=== PATIENT | female | born 1990 | race Two or more races ===

== ENCOUNTER → 2019-12-21 | Outpatient (CLI) | payer SELFPAY ==
--- NOTE | 2019-12-21 14:32 | RADIOLOGY REPORT (SQ) ---
EXAM DESCRIPTION: U/S OB 14+ TRNABD 1GES W/O DOP IMAGES COMPLETED DATE/TIME: 12/21/2019 1:46 pm REASON FOR STUDY: (Z34.82)ENCOUNTER FOR SUPRVSN OF NORMAL , SECOND TRIMESTER Z34.[address] FOR SUPRVSN OF NORMAL , SECOND TRI COMPARISON: None. TECHNIQUE: Static and Dynamic grayscale imaging performed of gravid uterus using transabdominal appr oach. Additional selected color Doppler and spectral images recorded. All stored on PACS. LIMITATIONS: None. FINDINGS: FETUSES SEEN:1 EGA: 16 weeks 2 days Calculated using BPD,FL,HC,AC documented on images. No discrepancy with clinica l dates. OCHOA: 06/04/2020 EFW: 149 +/-22 grams PERCENTILE: Not applicable. Fetus less than or equal to 20 weeks gestation. RAFAEL: Adequate PLACENTA: Posterior. Complete placenta previa. PRESENTATION: Variable. ANATOMY: No visualized anomalies. HEART RATE: 147 beats per minute. FOUR CHAMBER HEART: Visualized. MATERNAL ADNEXA: Maternal ovaries not visualized. CERVICAL LENGTH: 8.1 cm. Closed. OTHER: No other significant finding. IMPRESSION: LIVING INTRAUTERINE . ESTIMATED GESTATIONAL AGE 16 weeks 2 day NO VISUALIZED ANOMALIES. Complete placenta previa suggested. Placenta is posterior. Trimester of : Second trimester - 13 weeks 1 day to 27 weeks 6 days. TECHNICAL DOCUMENTATION: JOB ID: [id number] 2010 [employer]- All Rights Reserved Reading location - IP/workstation name: [email or web address]
== END ==
LOC: RAD 12:55
PROVIDERS: ATTEND Midwife
DX: O44.02 Complete placenta previa NOS or without hemorrhage, second trimester (principal); Z3A.16 16 weeks gestation of pregnancy
CPT/HCPCS: 76805

== ENCOUNTER → 2020-01-19 | Outpatient (CLI) | payer SELFPAY ==
--- NOTE | 2020-01-19 14:50 | RADIOLOGY REPORT (SQ) ---
EXAM DESCRIPTION: U/S OB 14+ TRNABD 1GES W/O DOP IMAGES COMPLETED DATE/TIME: 01/19/2020 2:03 pm REASON FOR STUDY: Z34.82 ENCOUNTER FOR SUPRVSN OF NORMAL , SECOND TRIMESTER Z34.82 ENCOUNT ER FOR SUPRVSN OF NORMAL , SECOND TRI COMPARISON: 12/21/2019 TECHNIQUE: Static and Dynamic grayscale imaging performed of gravid uterus using transabdominal appr oach. Additional selected color Doppler and spectral images recorded. All stored on PACS. LIMITATIONS: None. FINDINGS: FETUSES SEEN:1 EGA: 19 weeks 6 days Calculated using BPD,FL,HC,AC documented on images. No discrepancy with clinica l dates. OCHOA: 06/08/2020 EFW: 320 grams PERCENTILE: Not calculated LVP: 2.9 x 2.6 cm PLACENTA: Posterior. Covers cervical os. Grade 1 PRESENTATION: Variable ANATOMY: HEART RATE: 137 beats per minute. FOUR CHAMBER HEART: Visualized. THREE VESSEL CORD: Yes. CORD INSERTION: Visualized. KIDNEYS AND BLADDER: Visualized. Appear normal. STOMACH: Visualized. Appears normal. SPINE: Normal as visualized. BRAIN AND LATERAL VENTRICLES: Visualized. Appear normal. OTHER: No other significant finding. MATERNAL ADNEXA: Maternal ovaries not visualized. CERVICAL LENGTH: 3.7 cm. Closed. OTHER: No other significant finding. IMPRESSION: Living intrauterine gestation of 19 weeks 6 days. No anomalies are seen. There i s a posterior placenta that represents a placenta previa at this time. Trimester of : Second trimester - 13 weeks 1 day to 27 weeks 6 days. TECHNICAL DOCUMENTATION: JOB ID: [id number] 2010 [employer]- All Rights Reserved Reading location - IP/workstation name: [email or web address]
== END ==
LOC: RAD 13:20
PROVIDERS: ATTEND Nurse Practitioner Family
DX: Z34.82 Encounter for supervision of other normal pregnancy, second trimester (principal)
CPT/HCPCS: 76805

== ENCOUNTER → 2020-03-11 | Outpatient (CLI) | payer SELFPAY ==
--- NOTE | 2020-03-11 14:01 | RADIOLOGY REPORT (SQ) ---
EXAM DESCRIPTION: U/S OB 14+ TRNABD 1GES W/O DOP IMAGES COMPLETED DATE/TIME: 03/11/2020 1:26 pm REASON FOR STUDY: REPEAT US/PLACENTA PREVIA/GROWTH Z34.83 ENCOUNTER FOR SUPRVSN OF NORMAL , THIRD TRIM COMPARISON: 01/19/2020 TECHNIQUE: Limited transabdominal grayscale ultrasound for evaluation of specific requested obstetri erwin parameters. LIMITATIONS: None. FINDINGS: CERVICAL LENGTH: 4.3 cm. Closed. RAFAEL: 17.4 cm. FHR: 149 beats per minute. PRESENTATION: Breech. PLACENTA: Placenta now lies 1.5 cm proximal to the cervix. This is improved from prior study. ANATOMY: Not assessed OTHER: No other significant findings. IMPRESSION: Low lying placenta. The previa previously described is no longer noted. Trimester of : Third trimester - 28 weeks to delivery. TECHNICAL DOCUMENTATION: JOB ID: [id number] 2010 [employer]- All Rights Reserved Reading location - IP/workstation name: [email or web address]
== END ==
LOC: RAD 12:53
PROVIDERS: ATTEND Nurse Practitioner Family
DX: Z34.83 Encounter for supervision of other normal pregnancy, third trimester (principal)
CPT/HCPCS: 76805

== ENCOUNTER → 2020-04-11 | Outpatient (CLI) | payer OTHER ==
--- NOTE | 2020-04-11 13:50 | RADIOLOGY REPORT (SQ) ---
EXAM DESCRIPTION: U/S OB 14+ TRNABD 1GES W/O DOP IMAGES COMPLETED DATE/TIME: 04/11/2020 1:25 pm REASON FOR STUDY: (Z34.83) Z34.83 ENCOUNTER FOR SUPRVSN OF NORMAL , THIRD TRIM COMPARISON: None. TECHNIQUE: Limited transabdominal grayscale ultrasound for evaluation of specific requested obstetri erwin parameters. LIMITATIONS: None. FINDINGS: CERVICAL LENGTH: 4.1 cm. Closed. RAFAEL: 18.9 cm. FHR: 127 beats per minute. PRESENTATION: Cephalic. PLACENTA: Posterior in location. The since tip lies 3.6 cm above the internal os. ANATOMY: Not assessed OTHER: Estimated gestational age is 32 weeks 3 days. IMPRESSION: LIMITED OBSTETRICAL ULTRASOUND WITH MEASURED PARAMETERS DELINEATED ABOVE. Trimester of : Third trimester - 28 weeks to delivery. TECHNICAL DOCUMENTATION: JOB ID: [id number] [employer]- All Rights Reserved Reading location - IP/workstation name: [email or web address]
== END ==
LOC: RAD 12:57
PROVIDERS: ATTEND Midwife
DX: Z34.83 Encounter for supervision of other normal pregnancy, third trimester (principal); Z3A.32 32 weeks gestation of pregnancy
CPT/HCPCS: 76805

== ENCOUNTER 2020-05-16 15:18 | Inpatient (IN) | payer MEDICAID, OTHER ==
[2020-05-16 16:09] LABS: BACTERIA (WET MOUNT) 4+ BACTERIA SEEN; EPITHELIALS (WET MOUNT) 3+ EPITHELIALS SEEN; RBCS (WET MOUNT) FEW RBCS SEEN; T.VAGINALIS (WET MOUNT) NO TRICHOMONAS SEEN; WBCS (WET MOUNT) 2+ WBCS SEEN; YEAST (WET MOUNT) NO YEAST SEEN
[2020-05-16 16:10] LABS: APPEARANCE,URINE SLIGHTLY-CLOUDY; BILIRUBIN,URINE NEGATIVE (NEGATIVE); COLOR,URINE YELLOW; GLUCOSE, URINE NEGATIVE (NEGATIVE); KETONES,URINE NEGATIVE (NEGATIVE); LEUKOCYTE ESTERASE,URINE NEGATIVE (NEGATIVE); NITRITE,URINE NEGATIVE (NEGATIVE); PROTEIN,URINE NEGATIVE (NEGATIVE); URINE SPECIFIC GRAVITY 1.004; UROBILINOGEN,URINE NEGATIVE mg/dL (<2.0)
[2020-05-16 16:29] LABS: URINE AMPHETAMINES SCREEN NEGATIVE; URINE BARBITURATES SCREEN NEGATIVE; URINE BENZODIAZEPINES SCREEN NEGATIVE; URINE COCAINE SCREEN NEGATIVE; URINE MARIJUANA (THC) SCREEN NEGATIVE; URINE METHADONE SCREEN NEGATIVE; URINE PHENCYCLIDINE SCREEN NEGATIVE
--- NOTE | 2020-05-16 16:52 | Admission Physical ---
Datetime Report Generated by CPN: 05/16/2020 16:52 CURRENT ADMISSION Chief Complaint: Uterine Contractions; Suspected Ruptured Membranes Indication for Induction: PROM Admit Impression : Term, Intrauterine ; No Active Labor; Ruptured Membranes Admit Plan: Admit to Unit; Initiate Labor Augmentation Protocol ALLERGIES Medication Allergies: No Medication Allergies: No Known Allergies (05/16/2020) Latex: No Latex Allergies OBSTETRICAL HISTORY EDC: 06/04/2020 00:00 : 3 Para: 2 Term: 2 : 0 SAB: 0 IAB: 0 Ectopic: 0 Livin Cesareans: 0 VBACs: 0 Multiple Births: 0 Gestational Diabetes: Yes Rh Sensitization: No Incompetent Cervix: No TIANNA: No Infertility: No ART Treatment: No Uterine Anomaly: No IUGR: No Hx Previous C/S: No Macrosomia: No Hx Loss/Stillborn: No PIH: No Hx : No Placenta Previa/Abruption: No Depression/PP Depression: No PTL/PROM: No Post Hemorrhage: No Current Procedures: Ultrasound; NST Obstetrical History Comments: G1- 01/07/2012, male @38weeks G2- 10/14/2015, male @38weeks G3- current SEE RECORDS Alcohol: No Marijuana : No Cocaine: No Other Illicit Drugs: No Cigarettes: Never Smoker. [id number] MEDICAL HISTORY Diabetes: Yes Diabetes Type: Gestational Diabetes Blood Transfusion: No Pulmonary Disease (Asthma, TB): No Breast Disease: Yes Hypertension: No String Cutter Surgery: No Heart Disease: No Hosp/Surgery: Yes Autoimmune Disorder: No Anesthetic Complications: No Kidney Disease: No Abnormal Pap Smear: No Neuro/Epilepsy: No Psychiatric Disorders: No Other Medical Diseases: No Hepatitis/Liver Disease: No Significant Family History: No Varicosities/Phlebitis: No Trauma/Violence : No Thyroid Dysfunction: No Medical History Comments: L breast mass biopsy-benign 2014 INFECTIOUS HISTORY Gonorrhea: No Genital Herpes: No Chlamydia: No Tuberculosis: No Syphilis: No Hepatitis: No HIV/AIDS Exposure: No Rash or Viral Illness: No HPV: No PHYSICAL EXAM General: Normal HEENT: Normal Neurologic: Normal Thyroid: Normal Heart: Normal Lungs: Normal Breast: Normal Back: Normal Abdomen: Normal Genitourinary Exam: Normal Extremities: Normal DTRs: Normal Pelvic Type: Adequate Vital Signs: Reviewed VAGINAL EXAM Dilatation: 1 Effacement: 60 Station: -3 MEMBRANES Pooling: Negative Membranes: Ruptured Amniotic Fluid Color: Clear FETUS A EGA: 37.2 Monitoring: External US FHR- Baseline: 140 Variability: Moderate 6-25bpm Accelerations: 15X15 Decelerations: None FHR Category: Category I Estimated Weight (gm): 3500 Presentation: Vertex PLANS FOR LABOR AND DELIVERY Labor and Delivery: None Pain Management: Epidural Feeding Preference: Both Benefit of Breast Feed Discussed: Yes Circumcision: N/A INFORMED CONSENT Signature: with User ID: [email or web address]
[2020-05-16] MEDS ORDERED: PENICILLIN G POTASSIUM 5,000,000 UNIT in DEXTROSE 5%-WATER 100 ML IV ONE (16:55)
[2020-05-16] MEDS ORDERED: RINGERS SOLUTION,LACTATED 1,000 ML IV ONE (16:55)
[2020-05-16] MEDS ORDERED: OXYTOCIN 10 UNIT/ML VIAL ONE (18:10)
[2020-05-16] MEDS ORDERED: OXYTOCIN/0.9 % SODIUM CHLORIDE 30 UNIT/500 ML RTUINJ ONE (18:11)
[2020-05-16] MEDS ORDERED: LIDOCAINE 1% INJ-PF (10 MG/ML) 30 ML SDV ONE (18:11)
[2020-05-16] MEDS ORDERED: MISOPROSTOL 0.2 MG TABLET ONE (18:11)
[2020-05-16] MEDS ORDERED: PENICILLIN G-K 5 MILLION UNIT VIAL ONE (18:12)
[2020-05-16 18:13] LABS: ABSOLUTE LYMPHOCYTES (AUTO) 1.7 10^3/uL (0.5-4.7); ABSOLUTE MONOCYTES (AUTO) 0.6 10^3/uL (0.1-1.4); ABSOLUTE NEUT (AUTO) 5.3 10^3/uL (1.7-8.2); BASOPHILS % (AUTO) 0.2 % (0-2); EOSINOPHILS % (AUTO) 0.6 % (0-6); HEMOGLOBIN 11.3 g/dL (12.0-15.5); LYMPHOCYTES % (AUTO) 21.8 % (13-45); MEAN CORPUSCULAR HEMOGLOBIN 29.7 pg (27.0-33.4); MEAN CORPUSCULAR HGB CONC 34.2 g/dL (32.0-36.0); MEAN CORPUSCULAR VOLUME 87 fl (80-97); MONOCYTES % (AUTO) 8.3 % (3-13); PLATELET COUNT 239 10^3/uL (150-450); RED CELL DISTRIBUTION WIDTH 14.3 % (11.5-14.0); SEGMENTED NEUTROPHILS % (AUTO) 69.1 % (42-78); TOTAL CELLS COUNTED % (AUTO) 100 %; WHITE BLOOD COUNT 7.6 10^3/uL (4.0-10.5)
[2020-05-16] MEDS: OXYTOCIN/0.9 % SODIUM CHLORIDE 30 UNIT/500 ML RTUINJ IV PRN (19:23)
[2020-05-16 21:06] LABS: CHLAM PCR NOT DETECTED (NOT DETECT)
[2020-05-16] MEDS: PENICILLIN G POTASSIUM 2,500,000 UNIT in DEXTROSE 5%-WATER 50 ML IV SCH (23:09)
[2020-05-17] MEDS: RINGERS SOLUTION,LACTATED 1,000 ML IV PRN ×2 (01:42→11:11)
[2020-05-17] MEDS: PENICILLIN G POTASSIUM 2,500,000 UNIT in DEXTROSE 5%-WATER 50 ML IV SCH ×4 (02:59→14:29)
[2020-05-17] MEDS ORDERED: CALCIUM CARBONATE 500 MG TAB.CHEW PO ONE (09:10)
[2020-05-17] MEDS: OXYTOCIN/0.9 % SODIUM CHLORIDE 30 UNIT/500 ML RTUINJ IV PRN (10:30)
[2020-05-17] MEDS ORDERED: EPHEDRINE SULFATE INJ 50 MG/1 ML AMPULE ONE (11:14)
[2020-05-17] MEDS ORDERED: ROPIVACAINE HCL 0.2% INJ/PF (2 MG/ML) 20 ML SDV ONE (11:15)
[2020-05-17] MEDS ORDERED: FENTANYL/BUPIVACAINE/NS/PF 300 MCG/150 ML RTUINJ EPI ONE (11:15)
[2020-05-17] MEDS ORDERED: IBUPROFEN 800 MG TABLET ONE (16:05)
[2020-05-17] MEDS ORDERED: MEASLES,MUMPS&RUBELLA VACC/PF 0.5 ML VIAL SUBCUT PRN (16:49)
[2020-05-17] MEDS ORDERED: ACETAMINOPHEN WITH CODEINE #3 TABLET PO PRN ×2 (16:49)
[2020-05-17] MEDS ORDERED: OXYTOCIN/0.9 % SODIUM CHLORIDE 30 UNIT/500 ML RTUINJ IV PRN (16:49)
[2020-05-17] MEDS ORDERED: PSEUDOEPHEDRINE HCL 30 MG TABLET PO PRN (16:49)
[2020-05-17] MEDS ORDERED: DIPHENHYDRAMINE HCL 25 MG CAPSULE PO PRN (16:49)
[2020-05-17] MEDS ORDERED: FAMOTIDINE 20 MG TABLET PO PRN (16:49)
[2020-05-17] MEDS ORDERED: ACETAMINOPHEN 325 MG TABLET PO PRN (16:49)
[2020-05-17] MEDS ORDERED: DIPH/PERTUSS(ACELL)/TETANUS VAC/PF 0.5 ML SYR (>=10YO) IM PRN (16:49)
[2020-05-17] MEDS ORDERED: VARICELLA VACC/PF (1350 UNIT/0.5 ML) 0.5 ML VIAL SUBCUT PRN (16:49)
[2020-05-17] MEDS ORDERED: GLYCERIN/WITCH HAZEL LEAF 1 EACH MED..WIPE TP PRN (16:49)
[2020-05-17] MEDS ORDERED: DIBUCAINE 1% OINTMENT 28 GM TP PRN (16:49)
[2020-05-17] MEDS ORDERED: BENZOCAINE/MENTHOL AEROSOL SPRAY 56 ML TOP PRN (16:49)
[2020-05-17] MEDS ORDERED: MAG HYDROX/AL HYDROX/SIMETH SUSP 30 ML UDCUP PO PRN (16:49)
[2020-05-17] MEDS ORDERED: ZOLPIDEM TARTRATE 5 MG TABLET PO PRN (16:49)
[2020-05-17] MEDS ORDERED: MAGNESIUM HYDROXIDE SUSP 30 ML UDCUP PO PRN (16:49)
[2020-05-17] MEDS ORDERED: ACETAMINOPHEN 650 MG SUPP.RECT PR PRN (16:49)
[2020-05-17] MEDS: FERROUS SULFATE 325 MG TABLET PO SCH (18:36)
[2020-05-17] MEDS: DOCUSATE SODIUM 100 MG CAPSULE PO SCH (18:36)
[2020-05-17] MEDS ORDERED: IBUPROFEN 800 MG TABLET PO SCH (22:00)
[2020-05-18] MEDS: IBUPROFEN 800 MG TABLET PO SCH ×3 (02:04→17:46)
[2020-05-18 06:25] LABS: HEMATOCRIT 34.8 % (36.0-47.0); HEMOGLOBIN 11.7 g/dL (12.0-15.5); MEAN CORPUSCULAR HEMOGLOBIN 28.7 pg (27.0-33.4); MEAN CORPUSCULAR HGB CONC 33.7 g/dL (32.0-36.0); MEAN CORPUSCULAR VOLUME 85 fl (80-97); PLATELET COUNT 215 10^3/uL (150-450); RED BLOOD COUNT 4.08 10^6/uL (3.72-5.28); RED CELL DISTRIBUTION WIDTH 14.1 % (11.5-14.0); WHITE BLOOD COUNT 12.9 10^3/uL (4.0-10.5)
[2020-05-18] MEDS: SENNOSIDES/DOCUSATE 8.6-50 MG 1 EACH TABLET PO SCH (09:58)
[2020-05-18] MEDS: FERROUS SULFATE 325 MG TABLET PO SCH ×2 (09:58→17:46)
[2020-05-18] MEDS: DOCUSATE SODIUM 100 MG CAPSULE PO SCH ×2 (09:58→17:46)
[2020-05-18] MEDS: PRENATAL VITAMIN W DHA CAPSULE PO SCH (09:58)
--- NOTE | 2020-05-18 10:44 | PDOC PROGRESS REPORT ---
Subjective-OB Progress Note for:: 05/18/20 - PP Day #1, doing well, UOB, voiding, , O+, rubella Immune Physical Exam (OB) Vital Signs: Temp Pulse Resp BP Pulse Ox 97.7 F 77 18 93/57 L 97 05/18/20 09:50 05/18/20 08:42 05/18/20 08:42 05/18/20 08:42 05/18/20 07:45 Intake & Output 05/17/20 05/18/20 05/19/20 06:59 06:59 06:59 Intake Total 1450 Output Total 2 Balance 1448 Weight 69.6 kg - General General Appearance: Appears well, Alert In distress: None - PIH/Pre-Eclampsia Clonus: Negative Headache: Absent Epigastric Pain: No Visual Changes: No - Maternal Morbidity 59. Maternal Morbidity (serious complications experinced by the mother associated with labor and delivery: None of the above - Lochia Lochia Amount: Small 10-25 ml Lochia Color: Rubra/Red - Abdomen Description: Soft Hernia Present: No Fundal Description: Firm, Midline Fundal Height: u/u - u/2 - Respiratory Respiratory Status: No respiratory distress - Abdominal Distension: No distension - Genitourinary Genitourinary Note: voiding - Extremities Upper extremity: Normal inspection Lower extremities: Normal inspection - Neurological Cognition: Normal Orientation: AAOx4 - Psychological Associated symptoms: Normal affect, Normal mood - Skin Skin Temperature: Warm Skin Moisture: Dry Objective-Diagnostic Laboratory: 05/18/20 06:07 05/18/20 06:07 WBC 12.9 H RBC 4.08 Hgb 11.7 L Hct 34.8 L MCV 85 MCH 28.7 MCHC 33.7 RDW 14.1 H Plt Count 215 Assessment and Plan(PN) - Assessment and Plan (1) (normal spontaneous vaginal delivery) Is this a current diagnosis for this admission?: Yes (2) SROM (spontaneous rupture of membranes) Is this a current diagnosis for this admission?: Yes (3) Gestational diabetes Qualifiers: Gestational diabetes mellitus control: diet-controlled Trimester: third trimester Qualified Code(s): O24.410 - Gestational diabetes mellitus in , diet controlled Is this a current diagnosis for this admission?: Yes - Time Spent with Patient Time with patient: Less than 15 minutes Medications reviewed and adjusted accordingly: Yes - Disposition Anticipated Discharge Disposition: Home, Self Care Anticipated Discharge Timeframe: within 24 hours
[2020-05-19] MEDS: IBUPROFEN 800 MG TABLET PO SCH ×2 (01:23→10:06)
[2020-05-19 07:58] VITALS: BP 90/64
[2020-05-19] MEDS: SENNOSIDES/DOCUSATE 8.6-50 MG 1 EACH TABLET PO SCH (10:06)
[2020-05-19] MEDS: DOCUSATE SODIUM 100 MG CAPSULE PO SCH (10:06)
[2020-05-19] MEDS: FERROUS SULFATE 325 MG TABLET PO SCH (10:06)
[2020-05-19] MEDS: PRENATAL VITAMIN W DHA CAPSULE PO SCH (10:06)
--- NOTE | 2020-05-19 11:20 | PDOC DISCHARGE SUMMARY ---
Impression - Admit/DC Date/PCP Admission Date/Primary Care Provider: 05/16/20 16:41 Discharge Date: 05/19/20 - Discharge Diagnosis (1) Gestational diabetes Is this a current diagnosis for this admission?: Yes (2) (normal spontaneous vaginal delivery) Is this a current diagnosis for this admission?: Yes (3) SROM (spontaneous rupture of membranes) Is this a current diagnosis for this admission?: Yes - Additional Information Resuscitation Status: Full Code Discharge Diet: Regular Discharge Activity: Balance Activity w/Rest, Pelvic Rest Prescriptions: Ibuprofen [Motrin 800 mg Tablet] 800 mg PO Q8HP PRN #60 tablet PRN Reason: Home Medications: Prenat 115/Iron Fum/Folic/Dss [ 19 Tablet] 1 tab PO DAILY 05/16/20 Ibuprofen [Motrin 800 mg Tablet] 800 mg PO Q8HP PRN #60 tablet 05/19/20 HPI Gestational Age: 37.2 Reason(s) for Admission: Induction of Labor, PROM Procedures: NST Intrapartum Procedure(s): Spontaneous Vaginal Delivery Hospital Course 59. Maternal Morbidity (serious complications experinced by the mother associated with labor and delivery: None of the above Results Laboratory Results: WBC 12.9 10^3/uL (4.0-10.5) H 05/18/20 06:07 RBC 4.08 10^6/uL (3.72-5.28) 05/18/20 06:07 Hgb 11.7 g/dL (12.0-15.5) L 05/18/20 06:07 Hct 34.8 % (36.0-47.0) L 05/18/20 06:07 MCV 85 fl (80-97) 05/18/20 06:07 MCH 28.7 pg (27.0-33.4) 05/18/20 06:07 MCHC 33.7 g/dL (32.0-36.0) 05/18/20 06:07 RDW 14.1 % (11.5-14.0) H 05/18/20 06:07 Plt Count 215 10^3/uL (150-450) 05/18/20 06:07 Lymph % (Auto) 21.8 % (13-45) 05/16/20 17:28 [place] % (Auto) 8.3 % (3-13) 05/16/20 17:28 Eos % (Auto) 0.6 % (0-6) 05/16/20 17:28 Baso % (Auto) 0.2 % (0-2) 05/16/20 17:28 Absolute Neuts (auto) 5.3 10^3/uL (1.7-8.2) 05/16/20 17:28 Absolute Lymphs (auto) 1.7 10^3/uL (0.5-4.7) 05/16/20 17:28 Absolute Monos (auto) 0.6 10^3/uL (0.1-1.4) 05/16/20 17:28 Absolute Eos (auto) 0.0 10^3/uL (0.0-0.6) 05/16/20 17: Absolute Basos (auto) 0.0 10^3/uL (0.0-0.2) 05/16/20 17: Seg Neutrophils % 69.1 % (42-78) 05/16/20 17:28 Urine Color YELLOW 05/16/20 15:45 Urine Appearance SLIGHTLY-CLOUDY 05/16/20 15:45 Urine pH 7.0 (5.0-9.0) 05/16/20 15:45 Ur Specific [place] 1.004 05/16/20 15:45 Urine Protein NEGATIVE mg/dL (NEGATIVE) 05/16/20 15:45 Urine Glucose (UA) NEGATIVE mg/dL (NEGATIVE) 05/16/20 15:45 Urine Ketones NEGATIVE mg/dL (NEGATIVE) 05/16/20 15:45 Urine Blood NEGATIVE (NEGATIVE) 05/16/20 15:45 Urine Nitrite NEGATIVE (NEGATIVE) 05/16/20 15:45 Urine Bilirubin NEGATIVE (NEGATIVE) 05/16/20 15:45 Urine Urobilinogen NEGATIVE mg/dL (<2.0) 05/16/20 15:45 Ur Leukocyte Esterase NEGATIVE (NEGATIVE) 05/16/20 15:45 Urine Ascorbic Acid NEGATIVE (NEGATIVE) 05/16/20 15:45 Membranes Rupture POSITIVE (NEGATIVE) H 05/16/20 15:45 Epi Cells (Wet Prep) 3+ EPITHELIALS SEEN 05/16/20 15:45 Bacteria (Wet Prep) 4+ BACTERIA SEEN 05/16/20 15:45 Trichomonas (Wet Prep) NO TRICHOMONAS SEEN 05/16/20 15:45 Vaginal WBC 2+ WBCS SEEN 05/16/20 15:45 Vaginal RBC FEW RBCS SEEN 05/16/20 15:45 Vaginal Yeast NO YEAST SEEN 05/16/20 15:45 Urine Opiates Screen NEGATIVE 05/16/20 15:45 Urine Methadone Screen NEGATIVE 05/16/20 15:45 Ur Barbiturates Screen NEGATIVE 05/16/20 15:45 Ur Phencyclidine Scrn NEGATIVE 05/16/20 15:45 Ur Amphetamines Screen NEGATIVE 05/16/20 15:45 U Benzodiazepines Scrn NEGATIVE 05/16/20 15:45 Urine Cocaine Screen NEGATIVE 05/16/20 15:45 U Marijuana (THC) Screen NEGATIVE 05/16/20 15:45 RPR NONREACTIVE (NONREACTIVE) 05/16/20 17:28 Chlamydia DNA (PCR) NOT DETECTED (NOT DETECT) 05/16/20 15:45 N.gonorrhoeae DNA (PCR) NOT DETECTED (NOT DETECT) 05/16/20 15:45 Blood Type O POSITIVE 05/16/20 17:28 Antibody Screen NEGATIVE 05/16/20 17:28 Plan Plan of Treatment: [facility] Time Spent: Less than 30 Minutes
--- NOTE | 2020-05-26 07:20 | Delivery Summary ---
Del Sum A-C Datetime Report Generated by CPN: 05/26/2020 07:20 DELIVERY PERSONNEL DELIVERY PERSONNEL: [id number] Nurse Clinical Training Specialist Certified:: Lucy Harris CNM Labor and Delivery Nurse:: Lorrie Abdi RNboxing inspector Nurse:: Luba Gonzalez RN Health Care Facility Administrator/AUDIOLOGY ASSISTANT: [facility] Additional Personnel: : Marly Park RN MATERNAL INFORMATION Delivery Anesthesia: Epidural Medications After Delivery: Pitocin 30 Units in 500ml NS/D5W Meds After Delivery Comment: Pitocin 30units at 334mL/hr x200mL then 95mL/hr xrest of bag Delivery QBL: 100 Maternal Complications: Other Complication Details: Prolonged ROM Provider Comments: OA, RESTITUTED TO [facility]. BODY DELIVERED EASILY. BABY FEMALE WITH SPONTANEOUS CRY. CORD DOUBLE CLAMPED AND CUT. SPONTANEOUS PLACENTA INTACT WITH 3VC. MOTHER AND INFANT STABLE IN L_D#5. LABOR SUMMARY EDC: 06/04/2020 00:00 No. Babies in Womb: 1 Attempted: No Labor Anesthesia: Epidural LABOR INFORMATION Onset of Labor: 05/17/2020 09:15 Complete Dilatation: 05/17/2020 12:26 Oxytocin: Augmentation Group B Beta Strep: positive Antibiotics # of Doses: 6 Antibiotics Time of Last Dose: 05/17/2020 14:29 Name of Antibiotic Given: PCN Steroids Given: None Reason Steroids Not Administered: Not Applicable MEMBRANES Membranes Rupture Method: Spontaneous Rupture of Membranes: 05/16/2020 12:00 Length of Rupture (hr): 26.78 Amniotic Fluid Color: Clear Amniotic Fluid Amount: Small Amniotic Fluid Odor: None STAGES OF LABOR Stage 1 hr: 3 Stage 1 min: 11 Stage 2 hr: 2 Stage 2 min: 21 Stage 3 hr: 0 Stage 3 min: 5 Total Time in Labor hr: 5 Total Time in Labor min: 37 VAGINAL DELIVERY Episiotomy: None Laceration #1: None Laceration Repair: Not Applicable Sponge Count Correct: N/A Sharps Count Correct: N/A BABY A INFORMATION Delivery Date/Time: 05/17/2020 14:47 Method of Delivery: Vaginal Nurse Controlled Delivery: No Born in Route : No : N/A Forceps: N/A Vacuum Extraction: N/A Shoulder Dystocia : No PRESENTATION/POSITION BABY A Presentation: Cephalic Presentation: Cephalic Presentation: Cephalic Presentation: Cephalic Cephalic Presentation: Vertex Vertex Position: Right Occipital Anterior Breech Presentation: N/A PLACENTA INFORMATION BABY A Placenta Delivery Time : 05/17/2020 14:52 Placenta Method of Delivery: Spontaneous Placenta Method of Delivery: Spontaneous Placenta Method of Delivery: Spontaneous Placenta Status: Delivered SCORES BABY A Heart Rate 1 min: >100 bpm Resp Effort 1 min: Good Cry Reflex Irritability 1 min: Cough or Sneeze or Pulls Away Muscle Tone 1 min: Some Flexion of Extremities Color 1 min: Body [place], Extremities Blue Resuscitation Effort 1 min: Tactile Stimulation SCORE 1 MIN: 8 Heart Rate 5 min: >100 bpm Resp Effort 5 min: Good Cry Reflex Irritability 5 min: Cough or Sneeze or Pulls Away Muscle Tone 5 min: Active Motion Color 5 min: Body [place], Extremities Blue Resuscitation Effort 5 min: N/A SCORE 5 MIN: 9 INFORMATION BABY A Gestational Age at Delivery: 37.3 Gestational Status: Early Term- 37- 38.6 Weeks Outcome : Liveborn Infant Condition : Stable Sex: Female Infant Sex: Female IDENTIFICATION BABY A Infant Verification Date/Time: 05/17/2020 15:46 ID Band Number: [id number] Mother's Name Verified: Yes Infant RN Verifying : M Jin Additional Verifying Personnel: E Gonzalez WEIGHT/LENGTH BABY A Infant Birthweight (gm): 3215 Weight (lb): 7 Infant Weight (oz): 1 Infant Length (in): 20.00 Infant Length (cm): 50.80 CORD INFORMATION BABY A No. Cord Vessels: 3 (Annotations: Data stored by [facility] on behalf of user) Nuchal Cord : N/A Cord Blood Taken: Yes-For Storage (Mom's Blood type +) (Annotations: Data stored by [facility] on behalf of user) Infant Suction: None ASSESSMENT BABY A Complications: None Physical Findings at Delivery: Caput Succedaneum; Molding of the Head Respirations: Appears Normal Skin to Skin: Yes Stitchdown Thread Laster/ALS Called : No Care By: Linda Park RN Transferred To: Remains with Mother SIGNATURES Assignment: Armand Merchant MD Signature: with User ID: [email or web address] : with User ID: [email or web address] : I was personally available for consultation and serving as supervising physician for the MLP.
== END 2020-05-19 17:30 | disposition home or self-care (01) | DRG 807 ==
LOC: LC 15:18 → LR 16:41 → 2S 05-17 17:10
PROVIDERS: ADMIT Obstetrics & Gynecology; ATTEND Obstetrics & Gynecology
PROC: 10E0XZZ Delivery of Products of Conception, External Approach (ICD-10-PCS; principal; 2020-05-17)
DX: O24.420 Gestational diabetes mellitus in childbirth, diet controlled (principal); Z37.0 Single live birth; O42.92 Full-term premature rupture of membranes, unspecified as to length of time between rupture and onset of labor; O99.824 Streptococcus B carrier state complicating childbirth; Z3A.37 37 weeks gestation of pregnancy
CPT/HCPCS: 1967; 36415; 80307; 81005; 84112; 85025; 85027; 86592; 86850; 86900; 86901; 87210; 87491; 87591; J2540; J2590; J2795; J3010; J3490; J7060